=== PATIENT | male | born 1970 | race Caucasian/White ===

== ENCOUNTER 2021-09-10 05:03 | Emergency (ER) | payer SELFPAY ==
[~2021-09-10] VITALS: Ht 182.9 cm; Wt 125.0 kg
[2021-09-10] MEDS ORDERED: LISINOPRIL10 MG PO (05:25)
[2021-09-10] MEDS ORDERED: ALPRAZOLAM1 MG PO (05:26)
[2021-09-10 05:45] LABS: HEMATOCRIT 38.1 % (39.0-50.0); HEMOGLOBIN 12.5 g/dl (14.0-18.0); IMMATURE GRANULOCYTES 0.5 % (0.0-5.0); MEAN CELL VOLUME 88.6 fL CALC (80.0-100.0); MEAN CORPUSCULAR HGB 29.1 pG CALC (26.0-32.0); MEAN CORPUSCULAR HGB CONC 32.8 g/dL CAL (32.0-36.0); NEUT# 3.84 thou/uL (1.82-7.42); RED BLOOD COUNT 4.3 mill/uL (4.70-6.10); RED CELL DISTRI WIDTH 12.9 % (11.5-15.5)
[2021-09-10 05:57] LABS: ALBUMIN 4.5 g/dL (3.2-5.0); ALKALINE PHOSPHATASE 91 u/l (38-126); AMYLASE 55 u/l (30-110); ANION GAP 15 (6-22 (CALC)); BILIRUBIN, TOTAL 0.3 mg/dL (0.0-1.4); BUN 17 mg/dL (9-20); BUN/CREATININE RATIO 16 (12-20 (CALC)); CARBON DIOXIDE 22 mmol/l (22-30); CHLORIDE 106 mmol/l (95-108); CREATININE 1.1 mg/dL (0.7-1.3); GFR > 60 ML/MIN (>=60 (CALC)); GFR FOR AFR.AMER. > 60 ML/MIN (>=60 (CALC)); LIPASE 58 u/l (23-300); POTASSIUM 4.4 mmol/l (3.5-5.1); SGOT/AST 41 u/l (17-59); SODIUM 139 mmol/l (137-146); TOTAL PROTEIN 7.3 g/dL (6.3-8.2)
[2021-09-10 06:04] LABS: D-DIMER 0.96 mg/L (0.19-0.60)
[2021-09-10 06:08] LABS: MYOGLOBIN 164 ng/mL (0 - 121)
[2021-09-10 06:09] LABS: ACT PARTIAL THROMBO TIME 24.5 SECONDS (20.0-32.5); INTERNATIONAL NORMALIZED RATIO 0.9 RATIO (0.7-1.3); PROTHROMBIN TIME 9.9 SECONDS (9.0-12.5)
--- NOTE | 2021-09-10 06:30 | NUR ---
BREATHING TX GIVEN BACK TO BACK ORDERED.
[2021-09-10 07:45] VITALS: BP 167/105
[2021-09-10 08:01] VITALS: BP 231/148
[2021-09-10 08:14] VITALS: BP 151/108
[2021-09-10 08:30] VITALS: BP 153/91
[2021-09-10] MEDS ORDERED: NAPROXEN500 MG PO (08:40)
[2021-09-10] MEDS ORDERED: CLONIDINE0.1 MG PO (08:40)
[2021-09-10] MEDS ORDERED: CYCLOBENZAPRINE10 MG PO (08:40)
[2021-09-10 09:00] VITALS: BP 153/91
== END 2021-09-10 09:05 | disposition home or self-care (01) | DRG 556 ==
LOC: ED 05:03
PROVIDERS: Family Medicine
DX: M25.512 Pain in left shoulder (principal); R07.89 Other chest pain; I10 Essential (primary) hypertension; F41.9 Anxiety disorder, unspecified; F17.210 Nicotine dependence, cigarettes, uncomplicated; Z86.16 Personal history of COVID-19; Z20.822 Contact with and (suspected) exposure to COVID-19
CPT/HCPCS: Q9967